=== PATIENT | male | born 1940 | race Caucasian/White ===

== ENCOUNTER 2017-01-16 05:30 | Inpatient (IN) | payer MEDICARE, OTHER ==
[~2017-01-16 05:30] MED LIST: ADVAIR 100-501 EACH PO; ASPIR 8181 M1 PO; CYMBALTA20 M1 PO; MOBIC7.5 M2 PO; NORCO 5-325 TA1 EACH PO; OMEPRAZOLE20 M3 PO; TRAZODONE HCL50 M1 PO; TYLENOL ARTHRI650 M1 PO; VOLTAREN100 G1 TP
[2017-01-17 05:40] LABS: HCT-HEMATOCRIT 28.7 % (36.0-53.5); HGB-HEMOGLOBIN 9.5 gm/dl (13.5-17.0); IMMATURE GRANULOCYTES ABSOLUTE 0.02 tho/cmm (0-0.03); IMMATURE GRANULOCYTES PERCENT 0.2 % (0-0.3); LYMPH % 12.5 % (20-45); LYMPH ABSOLUTE COUNT 1.2 tho/cmm (0.8-4.5); MCH (MEAN CORPUSCULAR HGB) 30.5 pg (28.0-32.0); MCHC MEAN CORPUSCULAR HGB CONC 33.1 % (32.0-36.0); MCV (MEAN CELL VOLUME) 92.3 fl (82.0-96.0); MEAN PLATELET VOLUME 9.4 cmc (9.4-12.4); MONO % 11.7 % (0-12); MONOCYTE ABSOLUTE COUNT 1.2 tho/cmm (0.0-1.2); NEUTROPHIL ABSOLUTE COUNT 7.5 tho/cmm (1.6-8.0); NEUTROPHIL-AUTOMATED 7.5 tho/cmm (1.6-8.0); NEUTROPHILS % 75.6 % (40-80); PLATELET COUNT 190 tho/cmm (150-450); RED BLOOD COUNT 3.11 mil/cmm (4.40-5.70); WHITE BLOOD COUNT 9.9 tho/cmm (4.0-10.0)
[2017-01-17 05:43] LABS: ANION GAP 11 mmol/L (0-20); BLOOD UREA NITROGEN 19 mg/dl (6-24); CALCIUM 8.3 mg/dl (8.5-10.5); CARBON DIOXIDE-VENOUS 27 mmol/L (22-32); CHLORIDE 108 mmol/l (96-110); CREATININE 1.23 mg/dl (0.60-1.30); GLUCOSE 117 mg/dL (70-110); POTASSIUM 4.1 mmol/L (3.7-5.1); SODIUM 142 mmol/L (135-145); eGFR VALUE FOR BLACK 66 mL/Min
[2017-01-19] MEDS ORDERED: ROBAXIN-750750 M1 PO (13:18)
[2017-01-19] MEDS ORDERED: NORCO 5-325 TA1 EACH PO (13:22)
[2017-01-19] MEDS ORDERED: TYLENOL325 M2 PO (13:24)
[2017-01-19] MEDS ORDERED: SENOKOT-S TABL1 EACH PO (13:27)
== END 2017-01-19 15:35 | DRG 460 ==
LOC: SHSA 05:30 → ORE 07:30 → PACU 11:35 → 5EC 14:24
PROVIDERS: ADMIT Neurological Surgery
PROC: 0QB00ZZ Excision of Lumbar Vertebra, Open Approach (ICD-10-PCS; principal; 2017-01-16)
PROC: 0SG30AJ Fusion of Lumbosacral Joint with Interbody Fusion Device, Posterior Approach, Anterior Column, Open Approach (ICD-10-PCS; 2017-01-16)
DX: M48.06 Spinal stenosis, lumbar region (principal); J44.9 Chronic obstructive pulmonary disease, unspecified; M54.10 Radiculopathy, site unspecified; I10 Essential (primary) hypertension; E78.5 Hyperlipidemia, unspecified; K21.9 Gastro-esophageal reflux disease without esophagitis; M43.16 Spondylolisthesis, lumbar region; M54.16 Radiculopathy, lumbar region; Z23 Encounter for immunization
CPT/HCPCS: C1713; G0008; J0690; J1170; J2405; J2800; J3010; J3370